=== PATIENT | male | born 1995 | race Caucasian/White ===

== ENCOUNTER 2020-12-01 19:42 | Emergency (ER) | payer BC ==
[2020-12-01] MEDS ORDERED: Clindamycin/D5W 900 mg/50 ml Premix Bag ONE (22:49)
[2020-12-01] MEDS ORDERED: Boostrix 0.5 ML (Tdap) VIAL ONE (23:23)
== END 2020-12-01 23:55 | disposition home or self-care (01) ==
LOC: ERS 19:42
DX: L03.116 Cellulitis of left lower limb (principal)
CPT/HCPCS: 90471; 90715; 96365; J3490